=== PATIENT | female | born 1995 | race Caucasian/White ===

== ENCOUNTER 2023-05-23 19:17 | Emergency (ER) | payer MEDICAID, SELFPAY ==
[2023-05-23 19:18] VITALS: BP 115/76; PULSE 82; RESP 16; TEMP 36.6; O2SAT 97; BMI 22.1
--- NOTE | 2023-05-23 19:45 | ECG_ITS ---
APPROVED REPORT Exam: Resting ECG HR:81 bpm ECG Measurements Heart Rate 81 AXES DC 146 P 45 QRSd 85 QRS 92 QT 398 T 47 QTc 436 Conclusion SINUS RHYTHM BORDERLINE RIGHT AXIS DEVIATION [QRS AXIS > 90] BORDERLINE ECG UNCONFIRMED REPORT Electronically signed by : Raza Alcantar MD 05/24/2023 08:41:07
--- NOTE | 2023-05-23 19:46 | [facility].EDGENADL ---
Discharge Plan Disposition Patient Disposition: Home, Self-Care Condition: Good Prescriptions Prescriptions: New nitazoxanide 500 mg tablet 500 mg PO BID 3 Days Qty: 6 0RF Rx Instructions: must administer with a meal/food cefdinir 300 mg capsule 300 mg PO BID 7 Days Qty: 14 0RF No Action propranolol 20 mg Tablet 20 mg PO DAILY Referrals Follow up/Referrals: Giovanny Fitzgerald MD [Primary Care Provider] - See instructions Activity Restrictions/Add. Instructions Additional Instructions/Restrictions: At this time it was felt you are safe to be discharged home. If new or worsening symptoms please do not hesitate to return the emergency department. Please take your medications as prescribed. Clinical Impressions Clinical Impression: Acute infectious diarrhea, Cryptosporidial gastroenteritis Discharge ED Provider: [facility] HPI General Chief complaint: Nausea/Vomiting/Diarrhea Stated complaint: throwing up, diarreha, poss dehydration Time Seen by Provider: 05/23/23 19:37 History of Present Illness HPI narrative: Patient is a 27-year-old female with past medical history of congenital long QT syndrome presents emergency department for evaluation of vomiting, diarrhea. Patient has had profuse diarrhea over the last 48 to 72 hours with associated nonbloody nonbilious vomiting. Denies significant abdominal pain although has some epigastric discomfort. Due to inability to tolerate p.o. her PCP referred here for continued evaluation. Related Data Home Medications Medication Instructions Recorded Confirmed propranolol 20 mg tablet 20 mg PO DAILY prolonged QT 05/23/23 05/23/23 Previous Rx's Medication Instructions Recorded cefdinir 300 mg capsule 300 mg PO BID 7 days #14 caps 05/23/23 nitazoxanide 500 mg tablet 500 mg PO BID 3 days #6 tabs 05/23/23 Allergies Allergy/AdvReac Type Severity Reaction Status Date / Time No Known Allergies Allergy Verified 05/23/23 19:55 [facility] Disclaimer: The information contained in this section may have been updated after the patient was seen, as this information can be updated by other users. Social History Smoking Status: Never smoker alcohol intake: never current occupational status: other Travel in the last 8 weeks: None ROS Obtained: Yes Systems reviewed as appropriate & no additional complaints except as documented Physical Exam General General appearance: alert and in no apparent distress Head Head exam: atraumatic and normocephalic Eye Eye exam: Present PERRL and EOMI ENT ENT exam: Present mucous membranes moist Neck Neck exam: Present normal inspection Chest Chest inspection: Present normal inspection and symmetric chest wall rise Respiratory Respiratory exam: Present normal lung sounds bilaterally; Absent respiratory distress Cardiovascular Cardiovascular exam: Present regular rate and normal rhythm Abdominal Exam Abdominal exam: Present soft; Absent tenderness Extremities Exam Extremities exam: Present normal inspection Neurological Exam Neurological exam: Present alert and oriented X3 Psychiatric Psychiatric exam: Present normal affect Skin Skin exam: Present warm and dry Medical Decision Making Guilherme Inquiry Pt receiving controlled substance: No Vital Signs: 05/23/23 19:18 05/23/23 20:00 05/23/23 20:30 Temperature 97.8 F Temperature Source Oral Pulse Rate 84 72 Pulse Rate [Right] 82 Respiratory Rate 16 Blood Pressure 111/76 106/67 L Blood Pressure [Right Arm] 115/76 Blood Pressure Mean 88 80 Blood Pressure Mean [Right Arm] 89 02 Sat by Pulse Oximetry 97 97 100 Oxygen Delivery Method Room Air Room Air Room Air 05/23/23 21:00 05/23/23 21:30 Temperature Temperature Source Pulse Rate 78 80 Pulse Rate [Right] Respiratory Rate Blood Pressure 112/65 115/74 Blood Pressure [Right Arm] Blood Pressure Mean 78 85 Blood Pressure Mean [Right Ar
[2023-05-23 19:52] LABS: Basophils # 0.1 K/mm3 (0-0.2); Eosinophils % 0.5 % (0.1-12.0); Hematocrit 52.5 % (37.0-47.0); Hemoglobin 16.9 g/dL (12.2-16.2); Lymphocytes # 0.8 K/mm3 (0.7-4.5); Lymphocytes % 13.3 % (10-50); Mean Corpuscular HGB Conc 32.2 g/dL (31.8-35.4); Mean Platelet Volume 7.4 fl (7.4-10.4); Monocytes # 0.2 K/mm3 (0.1-1.0); Monocytes % 4.2 % (1.7-9.3); Neutrophils # 4.6 K/mm3 (1.8-7.8); Platelet Count 184 K/mm3 (142-424); Red Blood Count 6.03 M/mm3 (4.20-5.40); Red Cell Distribution Width 13.3 % (11.5-17.5); White Blood Count 5.6 K/mm3 (4.8-10.8)
[2023-05-23 19:53] LABS: Adenovirus F 40/41, stool Not Detected (NotDetected); Astrovirus Not Detected (NotDetected); Campylobacter Not Detected (NotDetected); Clostridium Difficile A/B, PCR Not Detected (NotDetected); Cyclospora Cayetanesis Not Detected (NotDetected); Entamoeba histolytica Not Detected (NotDetected); Enteroaggregative E coli Not Detected (NotDetected); Enteropathogenic E coli Not Detected (NotDetected); Enterotoxigenic E coli Not Detected (NotDetected); Giardia lamblia Not Detected (NotDetected); Microscopic, Urine URINE MICROSCOPIC (MICROSCOPIC); Plesimonas Shigalloides, PCR Not Detected (NotDetected); Rotavirus A Not Detected (NotDetected); Salmonella, PCR Not Detected (NotDetected); Sapovirus Not Detected (NotDetected); Shiga-like toxin E coli Not Detected (NotDetected); Shigella Enterovasive E coli Not Detected (NotDetected); Vibrio Cholerae Not Detected (NotDetected); Vibrio, PCR Not Detected (NotDetected); Yersinia Entercolitica, PCR Not Detected (NotDetected)
[2023-05-23 19:57] LABS: Alanine Aminotransferase 29 U/L (12-78); Albumin Level 5.3 g/dl (3.5-5.0); Albumin/Globulin Ratio 1.4 (1.1-1.8); Alkaline Phosphatase 68 U/L (38-126); Anion Gap 18.7 mEq/L (5-15); Aspartate Amino Transferase 43 U/L (14-36); Bilirubin,Total 0.7 mg/dl (0.2-1.3); Blood Urea Nitrogen 9 mg/dl (7-17); Calcium 9.7 mg/dl (8.4-10.2); Carbon Dioxide 20 mmol/L (22.0-30.0); Chloride 107 mmol/L (98-107); Creatinine Clearance Estimated 107 mL/min (50-200); Estimated Glomerular Filt Rate 100 ml/min (>60); GFR (African American) 121 ML/MIN (>60); Globulin 3.8 g/dL (1.3-3.2); Glucose 101 mg/dl (74-100); HCG Qualitative, Serum Negative (Negative); Lipase 48 U/L (23-300); Potassium 3.7 mmoL/L (3.5-5.1); Sodium 142 mmol/L (136-145); Total Protein,Serum 9.1 g/dl (6.3-8.2)
[2023-05-23 20:00] VITALS: BP 111/76; PULSE 84; O2SAT 97
[2023-05-23 20:00] LABS: Appearance,Urine SL CLOUDY (Clear); Blood, Urine TRACE-I (Negative); Color,Urine YELLOW (Yellow); Glucose,Urine (UA) Negative (Negative); Ketones,Urine Negative (Negative); Leukocyte Esterase,Urine TRACE (Negative); Nitrate,Urine Negative (Negative); Protein,Urine 1+ (Negative); Specific Gravity, Urine >= 1.030 (1.005-1.030); Urobilinogen,Urine 0.2 EU/dl (0.2)
[2023-05-23 20:03] LABS: Bilirubin,Urine 1+ (Negative)
[2023-05-23 20:18] LABS: Bacteria,Urine 2+ /lpf; Squamous Epithelial Cell,Urine Occasional #/hpf (0-5)
[2023-05-23 20:30] VITALS: BP 106/67; PULSE 72; O2SAT 100
[2023-05-23 21:00] VITALS: BP 112/65; PULSE 78; O2SAT 100
[2023-05-23 21:30] VITALS: BP 115/74; PULSE 80; O2SAT 100
[2023-05-23 21:45] LABS: Cryptosporidium Detected (NotDetected); Norovirus Detected (NotDetected)
--- NOTE | 2023-05-23 21:46 | PC.NURSE ---
notified of critical stool cryptosporidium and norovirus
[2023-05-23 22:18] VITALS: BP 114/75; PULSE 74; RESP 16; TEMP 36.6; O2SAT 100
== END 2023-05-23 22:25 | disposition home or self-care (01) ==
PROVIDERS: Emergency Provider Emergency Medicine; PCP Emergency Medicine
DX: A07.2 Cryptosporidiosis (principal); I45.81 Long QT syndrome
CPT/HCPCS: 80053; 81001; 83690; 84703; 85025; 87086; 87088; 87186; 87507; 93005; 96360; 99285; J0696